=== PATIENT | male | born 1960 | race African-American/Black ===

== ENCOUNTER 2025-03-14 14:33 | Inpatient (IN) | payer MEDICARE, MEDICAID ==
[~2025-03-14] VITALS: Ht 175.3 cm; Wt 80.3 kg
[2025-03-14 20:00] VITALS: BP 120/59; PULSE 66; RESP 20; TEMP 36.4; O2SAT 100
[2025-03-14 20:19] VITALS: BP 150/75; PULSE 84; RESP 18; TEMP 36.418
[2025-03-14] MEDS: ATORVASTATIN CALCIUM 40MG TABLET PO SCH (20:26)
[2025-03-15] VITALS (10 sets, daily range): BP systolic 110–164; BP diastolic 59–79; PULSE 61–78; RESP 12–18; TEMP 36.4–37; O2SAT 97–100
[2025-03-15] MEDS: SODIUM CHLORIDE 0.45% 500 ML IV NR (04:35)
[2025-03-15] MEDS ORDERED: LIDOCAINE HCL 1% 20ML VIAL ONE (07:20)
[2025-03-15] MEDS ORDERED: IODIXANOL 320 MG/ML 150ML BOTTLE IV ONE (07:20)
[2025-03-15] MEDS ORDERED: HEPARIN 1000 UNITS/ML 10ML ONE ×2 (07:20→10:07)
[2025-03-15 08:22] LABS: BASOPHILS % 0.3 % (0.0-2.0); EOSINOPHILS % 1.4 % (0.0-5.0); HEMATOCRIT. 42.2 % (42.0-52.0); HEMOGLOBIN. 13.6 g/dL (14.0-18.0); LYMPHOCYTES % 18.0 % (20.0-50.0); MEAN PLATELET VOLUME 8.2 fl (7.4-10.4); MONOCYTES % 8.1 % (2.0-8.0); NEUTROPHILS % 72.2 % (40.0-76.0); PLATELET 256 x1000/uL (130-400); RED BLOOD CELL COUNT 4.91 mill/uL (4.7-6.1); RED CELL DISTRIBUTION WIDTH 13.7 % (11.6-14.6)
[2025-03-15] MEDS ORDERED: ASPIRIN/SOD BICARB/CITRIC ACID 324MG TAB EFF ONE (08:38)
[2025-03-15 08:48] LABS: CREATININE 1.3 mg/dL (0.6-1.3); TRIGLYCERIDE 163 mg/dL (0-150); UREA NITROGEN BLOOD 14 mg/dL (9-23)
[2025-03-15 08:49] LABS: LDL CHOLESTEROL 30 mg/dL (5-100)
[2025-03-15] MEDS ORDERED: ASPIRIN 81MG EC TABLET PO SCH (09:00)
[2025-03-15] MEDS ORDERED: FENTANYL CITRATE/PF 50MCG/ML 2ML VIAL ONE (09:13)
[2025-03-15] MEDS ORDERED: MIDAZOLAM HCL 2 MG/2 ML VIAL ONE (09:13)
[2025-03-15] MEDS ORDERED: DEXTROSE 50% WATER 50ML SYRINGE IV PRN (09:15)
[2025-03-15] MEDS ORDERED: ONDANSETRON HCL 4MG/2ML INJ IV PRN ×2 (09:15→11:30)
[2025-03-15] MEDS ORDERED: ACETAMINOPHEN 325MG TABLET PO PRN ×3 (09:15→11:30)
[2025-03-15] MEDS ORDERED: DIPHENHYDRAMINE 50MG/ML VIAL IV PRN (09:15)
[2025-03-15] MEDS ORDERED: CLONIDINE 0.1MG TABLET PO PRN (09:15)
[2025-03-15] MEDS ORDERED: CLOPIDOGREL 75MG TABLET ONE (10:57)
[2025-03-15] MEDS: CLOPIDOGREL 75MG TABLET PO NR (11:30)
[2025-03-15] MEDS ORDERED: MORPHINE SULFATE 4 MG/ML INJ (FOR IV/IM USE) IV PRN (11:30)
[2025-03-15] MEDS ORDERED: ATROPINE SULFATE 1MG/10ML SYR IV PRN (11:30)
[2025-03-15] MEDS ORDERED: NALOXONE HCL 0.4MG/ML VIAL IV PRN (11:45)
[2025-03-15] MEDS: BLOOD SUGAR DIAGNOSTIC STRIP TEST SCH (12:00)
[2025-03-15] MEDS: METOPROLOL SUCCINATE 25MG ER TABLET PO SCH (14:00)
[2025-03-15] MEDS: SODIUM CHLORIDE 0.45% 1,000 ML IV ONE (14:03)
[2025-03-15] MEDS: INSULIN LISPRO 100 UNITS/ML SUBCUT SCH (14:03)
[2025-03-15] MEDS: AMLODIPINE 2.5MG TABLET PO SCH (21:23)
[2025-03-15] MEDS: MORPHINE SULFATE 4 MG/ML INJ (FOR IV/IM USE) IV PRN (21:31)
[2025-03-16] VITALS: BP 147/76; PULSE 67; RESP 18; TEMP 36.9; O2SAT 98
[2025-03-16 04:00] VITALS: BP 108/93; PULSE 69; RESP 15; TEMP 36.8; O2SAT 99
[2025-03-16 08:00] VITALS: BP 141/68; PULSE 73; RESP 14; TEMP 36.9; O2SAT 100
[2025-03-16] MEDS: ASPIRIN 81MG TABLET PO SCH (08:32)
[2025-03-16] MEDS: CLOPIDOGREL 75MG TABLET PO SCH (08:33)
[2025-03-16 08:35] LABS: BASOPHILS % 0.3 % (0.0-2.0); EOSINOPHILS % 1.5 % (0.0-5.0); HEMATOCRIT. 39.7 % (42.0-52.0); HEMOGLOBIN. 13.0 g/dL (14.0-18.0); LYMPHOCYTES % 16.0 % (20.0-50.0); MEAN PLATELET VOLUME 8.4 fl (7.4-10.4); MONOCYTES % 8.4 % (2.0-8.0); NEUTROPHILS % 73.8 % (40.0-76.0); PLATELET 275 x1000/uL (130-400); RED BLOOD CELL COUNT 4.71 mill/uL (4.7-6.1); RED CELL DISTRIBUTION WIDTH 13.7 % (11.6-14.6)
[2025-03-16 09:02] LABS: CREATININE 1.4 mg/dL (0.6-1.3)
[2025-03-16 09:03] LABS: UREA NITROGEN BLOOD 19 mg/dL (9-23)
[2025-03-16 12:00] VITALS: BP 142/74; PULSE 70; RESP 14; TEMP 36.8; O2SAT 100
[2025-03-16 16:00] VITALS: BP 136/73; PULSE 67; RESP 19; TEMP 36.6; O2SAT 98
[2025-03-16 20:00] VITALS: BP 143/64; PULSE 66; RESP 18; TEMP 36.9; O2SAT 99
[2025-03-16] MEDS: HYDROCODONE/ACETAMINOPHEN 5/325MG TABLET PO PRN (20:55)
[2025-03-16] MEDS ORDERED: COLLAGENASE 250UNIT/GM OINT 30GM TOP SCH (21:45)
[2025-03-17] VITALS: BP 133/91; PULSE 61; RESP 18; TEMP 36.8; O2SAT 96
[2025-03-17 04:00] VITALS: BP 131/74; PULSE 63; RESP 20; TEMP 36.7; O2SAT 99
[2025-03-17] MEDS: GLIPIZIDE 10MG TABLET PO SCH (06:30)
[2025-03-17 08:00] VITALS: BP 141/71; PULSE 72; RESP 16; TEMP 36.7; O2SAT 99
[2025-03-17] MEDS: SILVER SULFADIAZINE 1% CREAM 50GM TOP SCH (11:59)
[2025-03-17 12:00] VITALS: BP 135/69; PULSE 70; RESP 18; TEMP 36.8; O2SAT 97
[2025-03-17 12:40] VITALS: BP 135/69; PULSE 70; RESP 18; TEMP 98.3
== END 2025-03-17 13:52 | disposition home or self-care (01) | DRG 254 ==
LOC: 6EST 14:33 → 3WST 03-15 12:37
PROVIDERS: ADMIT Internal Medicine; ATTEND Internal Medicine
PROC: 047K34Z Dilation of Right Femoral Artery with Drug-eluting Intraluminal Device, Percutaneous Approach (ICD-10-PCS; principal; 2025-03-15)
PROC: B41F1ZZ Fluoroscopy of Right Lower Extremity Arteries using Low Osmolar Contrast (ICD-10-PCS; 2025-03-15)
DX: E11.51 Type 2 diabetes mellitus with diabetic peripheral angiopathy without gangrene (principal); I25.10 Atherosclerotic heart disease of native coronary artery without angina pectoris; E11.621 Type 2 diabetes mellitus with foot ulcer; I12.9 Hypertensive chronic kidney disease with stage 1 through stage 4 chronic kidney disease, or unspecified chronic kidney disease; E78.5 Hyperlipidemia, unspecified; N18.9 Chronic kidney disease, unspecified; E11.22 Type 2 diabetes mellitus with diabetic chronic kidney disease; I70.201 Unspecified atherosclerosis of native arteries of extremities, right leg; L97.519 Non-pressure chronic ulcer of other part of right foot with unspecified severity; E78.00 Pure hypercholesterolemia, unspecified; Z79.899 Other long term (current) drug therapy; Z79.82 Long term (current) use of aspirin; Z79.84 Long term (current) use of oral hypoglycemic drugs; Z83.3 Family history of diabetes mellitus
CPT/HCPCS: 36415; 37226; 75710; 80048; 80061; 82962; 85025; 85347; 93005; A4606; C1725; C1726; C1769; C1876; C1893; C1894; J1644; J1815; J2003; J2250; J2270; J3010; Q9967